=== PATIENT | female | born 1990 | race American Indian/Alaskan Native ===

== ENCOUNTER 2016-09-05 11:00 | Inpatient (IN) | payer OTHER ==
[2016-09-05] MEDS ORDERED: NACL 0.9% 1000 ML 1,000 ML IV ONE ×2 (11:39→15:36)
[2016-09-05] MEDS ORDERED: DILAUDID IV ONE (11:39)
--- NOTE | 2016-09-05 11:40 | Emergency Department Report ---
ED General Adult HPI - General Chief complaint: Chest Pain Stated complaint: CHEST PAIN Time Seen by Provider: 09/05/16 11:30 Source: patient, family Mode of arrival: Ambulatory Limitations: No Limitations - History of Present Illness Initial comments: This is a 25-year-old female. She is previously unknown to me. Has a past medical history of surgical correction for aortic coarctation when she was 1. The patient presents to the ER complaining of chest pain. The chest pain is central and radiates to the back. It increases with palpation, deep inspiration , movement, and decreases when she lays on her right hand side. There is no leg pain, there is no leg swelling, no fevers or chills, no intractable nausea or vomiting, patient able to tolerate liquid feeds. Does not have a fever that she is aware of. Reports that she is not , denies cocaine use, and she also reports that she does not take control tablets. -: Gradual Location: neck, chest (patient reports that the pain starts in the chest, and radiates to her back and neck), back Quality: aching Consistency: constant Improves with: rest Worsens with: movement Associated Symptoms: chest pain - Related Data Previous Rx's Medication Instructions Recorded Last Taken Type Azithromycin [Zithromax Z-LEONELA] 250 mg PO QDAY #4 tablet 09/05/16 Unknown Rx Ketorolac [Toradol] 10 mg PO Q6H PRN #20 tablet 09/05/16 Unknown Rx Metoclopramide [Reglan] 10 mg PO QID PRN #30 tablet 09/05/16 Unknown Rx Allergies Allergy/AdvReac Type Severity Reaction Status Date / Time No Known Allergies Allergy Unverified 09/05/16 11:12 ED Review of Systems ROS: Stated complaint: CHEST PAIN Other details as noted in HPI Constitutional: denies: malaise Eyes: denies: vision change ENT: denies: epistaxis Cardiovascular: chest pain Gastrointestinal: denies: abdominal pain Genitourinary: denies: dysuria Musculoskeletal: denies: back pain Skin: denies: lesions Psychiatric: anxiety ED Past Medical Hx - Past Medical History Previous Medical History?: Yes Additional medical history: coarctation of the Aorta - Surgical History Past Surgical History?: Yes Hx Open Heart Surgery: Yes - Social History Smoking Status: Never Smoker Substance Use Type: Alcohol - Medications Home Medications: Home Medications Medication Instructions Recorded Confirmed Last Taken Type Azithromycin [Zithromax Z-LEONELA] 250 mg PO QDAY #4 tablet 09/05/16 Unknown Rx Ketorolac [Toradol] 10 mg PO Q6H PRN #20 tablet 09/05/16 Unknown Rx Metoclopramide [Reglan] 10 mg PO QID PRN #30 tablet 09/05/16 Unknown Rx ED Physical Exam - General Limitations: No Limitations General appearance: alert, in distress, obese - Head Head exam: Present: atraumatic, normocephalic - Eye Eye exam: Present: normal appearance, EOMI. Absent: nystagmus - ENT ENT exam: Present: normal exam, normal orophraynx, mucous membranes moist, normal external ear exam - Neck Neck exam: Present: normal inspection, full ROM. Absent: tenderness, meningismus - Respiratory Respiratory exam: Present: normal lung sounds bilaterally, chest wall tenderness , other (reproducible anterior left-sided chest wall tenderness.). Absent: respiratory distress, wheezes, rales, rhonchi, stridor - Cardiovascular Cardiovascular Exam: Present: regular rate, normal rhythm. Absent: systolic murmur, diastolic murmur, rubs, gallop - GI/Abdominal GI/Abdominal exam: Present: soft, normal bowel sounds. Absent: distended, tenderness, guarding, rebound, rigid, pulsatile mass - Extremities Exam Extremities exam: Present: normal inspection, full ROM, normal capillary refill. Absent: tenderness, pedal edema, joint swelling, calf tenderness - Back Exam Back exam: Present: normal inspection, full ROM. Absent: tenderness, CVA tenderness (R), CVA tenderness (L), muscle spasm, paraspinal tenderness, vertebral tenderness - Neurological Exam Neurological exam: Present: alert, oriented X3, other (Extraocular movements intact. Tongue midline. No facial droop. Facial sensation intact to light touch in the V1, V2, V3 distribution bilaterally. 5 and 5 strength in 4 extremities.. Sensation is intact to light touch in 4 extremities.). Absent: motor sensory deficit - Psychiatric Psychiatric exam: Present: normal affect, normal mood - Skin Skin exam: Present: warm, dry, intact, normal color. Absent: rash ED Course Vital Signs 09/05/16 09/05/16 09/05/16 11:13 11:46 12:00 Temperature 98.9 F Pulse Rate 148 H 79 93 H Respiratory 22 11 L 30 H Rate Blood Pressure 136/71 112/65 112/65 Blood Pressure [Left] O2 Sat by Pulse 100 100 99 Oximetry 09/05/16 09/05/16 09/05/16 12:25 12:55 13:00 Temperature 99.3 F Pulse Rate 82 Respiratory 20 16 18 Rate Blood Pressure 100/65 Blood Pressure 108/56 [Left] O2 Sat by Pulse 97 Oximetry 09/05/16 09/05/16 09/05/16 13:39 14:00 14:09 Temperature Pulse Rate 81 Respiratory 16 24 16 Rate Blood Pressure 108/56 Blood Pressure [Left] O2 Sat by Pulse 100 Oximetry 09/05/16 09/05/16 09/05/16 15:00 15:12 16:00 Temperature 98.3 F Pulse Rate 138 H 120 H 112 H Respiratory 18 16 32 H Rate Blood Pressure 106/60 113/73 Blood Pressure 113/67 [Left] O2 Sat by Pulse 98 98 96 Oximetry 09/05/16 09/05/16 09/05/16 17:01 18:01 19:31 Temperature Pulse Rate 123 H 127 H Respiratory 20 27 H 20 Rate Blood Pressure 123/74 Blood Pressure 120/67 [Left] O2 Sat by Pulse 98 94 98 Oximetry - Reevaluation(s) Reevaluation #1: 09/05/16 13:06 Differential diagnosis: Aortic disease, costochondritis, pulmonary embolus, acute coronary syndrome, pneumonia, GERD, reflux Assessment and plan: 25-year-old female with a few days of reproducible pleuritic pain. Was very tachycardic when she came in, found to have a right bundle-branch block without prior for comparison. She had equal pulses in 4 extremities, compartments are soft. She was initially tachycardic, but improved with hydromorphone. Because of her chest pain, tachycardia, pleuritic component, I felt that the patient was too high risk by well's criteria to risk stratify by d-dimer, so an emergent CT angiogram is obtained to exclude aortic disease, and pulmonary embolus. A right lower lobe pneumonia is noted, however the patient has a low curb 65 score, she is not desaturating when she came weights, and she is tolerating liquid feeds. She will be given ceftriaxone and azithromycin, and discharged with azithromycin, and pain medication. Her abnormal EKG demonstrates a right bundle branch block, this is most likely chronic since her pediatric procedures, but we do not have a prior for comparison. I discussed the patient's care and presentation with the adult educator on-call, Dr. Jeffrey Langston, who agreed that the patient would not require admission for acute coronary syndrome risk stratification, and indicated that he would be able to see the patient next week for follow-up appointment. Patient is from the community, does not require healthcare associated pneumonia coverage, therefore ceftriaxone and azithromycin should be adequate. 09/05/16 13:09 Reevaluation #2: 09/05/16 13:13 patient's initial EKG is interpreted by the computer as being A. fib with RVR, however I believe P waves are evident, may be an arrhythmia which is in normal sinus, limited by motion artifact. A repeat EKG was free of artifact, clearly in sinus, and not rapid. Reevaluation #3: 09/05/16 15:33 change in plans. Patient is A. fib/flutter with RVR, variable rate from 85 beats per minutes to 151 beats per minutes. Given her radiographically confirmed pneumonia, I suspect that she is in RVR secondary to her acute infectious process. She will be given IV fluids. In addition, the patient is low risk by the Chads 2 vasc score, therefore, she will be given aspirin. Blood cultures, IV fluids will be drawn. Given her acutely infectious process, I do not believe that miya blockade is appropriate at this time. Hospital physician, Dr. Tong accepts patient to his service. Patient and family informed of change in plans. 09/05/16 15:35 ED Medical Decision Making - Lab Data Result diagrams: 09/07/16 04:21 09/07/16 04:21 Vital Signs 09/05/16 09/05/16 11:13 12:25 Temperature 98.9 F Pulse Rate 148 H Respiratory 22 20 Rate Blood Pressure 136/71 O2 Sat by Pulse 100 Oximetry Lab Results 09/05/16 09/05/16 09/05/16 Range/Units 11:30 11:35 11:35 WBC 11.9 H (4.5-11.0) K/mm3 RBC 4.82 (3.65-5.03) M/mm3 Hgb 14.4 H (10.1-14.3) gm/dl Hct 43.6 H (30.3-42.9) % MCV 90 (79-97) fl MCH 30 (28-32) pg MCHC 33 (30-34) % RDW 12.2 L (13.2-15.2) % Plt Count 260 (140-440) K/mm3 Lymph % (Auto) 14.2 (13.4-35.0) % Dukes % (Auto) 6.0 (0.0-7.3) % Eos % (Auto) 0.1 (0.0-4.3) % Baso % (Auto) 0.3 (0.0-1.8) % Lymph # 1.7 (1.2-5.4) K/mm3 Dukes # 0.7 (0.0-0.8) K/mm3 Eos # 0.0 (0.0-0.4) K/mm3 Baso # 0.0 (0.0-0.1) K/mm3 Seg Neutrophils % 79.4 H (40.0-70.0) % Seg Neutrophils # 9.5 H (1.8-7.7) K/mm3 PT (12.2-14.9) Sec. INR (0.87-1.13) Sodium 139 (137-145) mmol/L Potassium 4.2 (3.6-5.0) mmol/L Chloride 103.2 (98-107) mmol/L Carbon Dioxide 25 (22-30) mmol/L Anion Gap 15 mmol/L BUN 8 (7-17) mg/dL Creatinine 0.8 (0.7-1.2) mg/dL Estimated GFR > 60 ml/min BUN/Creatinine Ratio 10.00 % Glucose 117 H (65-100) mg/dL Calcium 9.1 (8.4-10.2) mg/dL Troponin T < 0.010 (0.00-0.029) ng/mL TSH (0.270-4.200) mlU/mL HCG, Quant (0-4) mIU/mL Urine Color Yellow (Yellow) Urine Turbidity Clear (Clear) Urine pH 5.0 (5.0-7.0) Ur Specific [place] 1.018 (1.003-1.030) Urine Protein 30 mg/dl (Negative) mg/dL Urine Glucose (UA) Neg (Negative) mg/dL Urine Ketones 20 (Negative) mg/dL Urine Blood Sm (Negative) Urine Nitrite Neg (Negative) Urine Bilirubin Neg (Negative) Urine Urobilinogen 4.0 (<2.0) mg/dL Ur Leukocyte Esterase Neg (Negative) Urine WBC (Auto) 1.0 (0.0-6.0) /HPF Urine RBC (Auto) 3.0 (0.0-6.0) /HPF U Epithel Cells (Auto) 1.0 (0-13.0) /HPF Urine Bacteria (Auto) 1+ (Negative) /HPF Urine Mucus Few /HPF Urine HCG, Qual Negative (Negative) 09/05/16 09/05/16 09/05/16 Range/Units 11:35 11:35 11:49 WBC (4.5-11.0) K/mm3 RBC (3.65-5.03) M/mm3 Hgb (10.1-14.3) gm/dl Hct (30.3-42.9) % MCV (79-97) fl MCH (28-32) pg MCHC (30-34) % RDW (13.2-15.2) % Plt Count (140-440) K/mm3 Lymph % (Auto) (13.4-35.0) % Dukes % (Auto) (0.0-7.3) % Eos % (Auto) (0.0-4.3) % Baso % (Auto) (0.0-1.8) % Lymph # (1.2-5.4) K/mm3 Dukes # (0.0-0.8) K/mm3 Eos # (0.0-0.4) K/mm3 Baso # (0.0-0.1) K/mm3 Seg Neutrophils % (40.0-70.0) % Seg Neutrophils # (1.8-7.7) K/mm3 PT 14.1 (12.2-14.9) Sec. INR 1.10 (0.87-1.13) Sodium (137-145) mmol/L Potassium (3.6-5.0) mmol/L Chloride (98-107) mmol/L Carbon Dioxide (22-30) mmol/L Anion Gap mmol/L BUN (7-17) mg/dL Creatinine (0.7-1.2) mg/dL Estimated GFR ml/min BUN/Creatinine Ratio % Glucose (65-100) mg/dL Calcium (8.4-10.2) mg/dL Troponin T (0.00-0.029) ng/mL TSH 0.387 (0.270-4.200) mlU/mL HCG, Quant < 2 (0-4) mIU/mL Urine Color (Yellow) Urine Turbidity (Clear) Urine pH (5.0-7.0) Ur Specific [place] (1.003-1.030) Urine Protein (Negative) mg/dL Urine Glucose (UA) (Negative) mg/dL Urine Ketones (Negative) mg/dL Urine Blood (Negative) Urine Nitrite (Negative) Urine Bilirubin (Negative) Urine Urobilinogen (<2.0) mg/dL Ur Leukocyte Esterase (Negative) Urine WBC (Auto) (0.0-6.0) /HPF Urine RBC (Auto) (0.0-6.0) /HPF U Epithel Cells (Auto) (0-13.0) /HPF Urine Bacteria (Auto) (Negative) /HPF Urine Mucus /HPF Urine HCG, Qual (Negative) - EKG Data When compared to previous EKG there are: previous EKG unavailable 09/05/16 13:12 EKG demonstrates sinus, 86 bpm, right bundle branch block, not morphologically consistent with STEMI, normal axis. Initial EKG demonstrates sinus tachycardia, sinus arrhythmia, QTc 478 ms, limited by motion artifact. 09/05/16 13:12 - Radiology Data Radiology results: report reviewed, image reviewed interpreted by me: x-ray of the chest demonstrates right lower lobe pneumonia. CT scan of the chest demonstrates right lower lobe pneumonia, no aortic disease , no pulmonary embolus. Critical care attestation.: If time is entered above; I have spent that time in minutes in the direct care of this critically ill patient, excluding procedure time. ED Disposition Clinical Impression: Chest wall pain, Lower lobe pneumonia, Atrial fibrillation with RVR Disposition: OP ADMITTED IP TO THIS HOSP Is pt being admited?: Yes Does the pt Need Aspirin: Yes Condition: Stable
[2016-09-05 11:51] LABS: Basophils % (Auto) 0.3 % (0.0-1.8); Eosinophils % (Auto) 0.1 % (0.0-4.3); Hematocrit 43.6 % (30.3-42.9); Hemoglobin 14.4 gm/dl (10.1-14.3); Mean Corpuscular HGB Conc 33 % (30-34); Mean Corpuscular Hemoglobin 30 pg (28-32); Mean Corpuscular Volume 90 fl (79-97); Platelet Count 260 K/mm3 (140-440); Red Blood Count 4.82 M/mm3 (3.65-5.03); Red Cell Distribution Width 12.2 % (13.2-15.2); White Blood Count 11.9 K/mm3 (4.5-11.0)
[2016-09-05 12:00] LABS: Bacteria,Urine 1+ /HPF (Negative); Bilirubin,Urine NEG (Negative); Blood,Urine SM (Negative); Ketones,Urine 20 mg/dL (Negative); Leukocyte Esterase,Urine NEG (Negative); Mucus,Urine FEW /HPF; Nitrite,Urine NEG (Negative)
[2016-09-05 12:08] LABS: Anion Gap 15 mmol/L; Blood Urea Nitrogen 8 mg/dL (7-17); Calcium 9.1 mg/dL (8.4-10.2); Carbon Dioxide 25 mmol/L (22-30); Chloride 103.2 mmol/L (98-107); Glucose 117 mg/dL (65-100); Potassium 4.2 mmol/L (3.6-5.0); Sodium 139 mmol/L (137-145)
[2016-09-05 12:24] LABS: INR 1.1 (0.87-1.13)
[2016-09-05] MEDS ORDERED: NACL ONE (12:24)
--- NOTE | 2016-09-05 13:00 | Cat Scan Report ---
CT scan of chest with IV contrast: PA protocol. History: Pleuritic chest pain. Findings: No evidence of aortic aneurysm or pulmonary embolism. No mediastinal mass or adenopathy. No pleural or pericardial effusion. Ill-defined airspace opacities right lower lobe suggestive of pneumonitis. No mass. Impression: No evidence of pulmonary embolism. Right lower lobe pneumonia.
[2016-09-05] MEDS ORDERED: TORADOL IV ONE (13:02)
[2016-09-05] MEDS ORDERED: ROCEPHIN/NS 1 GM/50 ML 1 GM/50 ML BAG IV ONE (13:02)
[2016-09-05] MEDS ORDERED: ZITHROMAX PO ONE (13:11)
--- NOTE | 2016-09-05 13:34 | XRay Report ---
Single view chest: History: Chest pain. Findings: Borderline cardiomegaly. Trachea is midline. Faint ill-defined linear density right lower lobe suggestive of discoid atelectasis or pneumonitis. Normal CP angles. Impression: Pneumonia/discoid atelectasis right lower lobe.
[2016-09-05] MEDS ORDERED: NACL 0.9% 1000 ML 2,000 ML IV ONE (15:32)
--- NOTE | 2016-09-05 15:57 | History and Physical Report ---
History of Present Illness Chief complaint: My chest hurts History of present illness: 25 YO Female with Paroxysmal Atrial Fib, Obesity, Aortic Coartcation S/P repair 25 years ago presents to ED for evaluation. Pt states that she has been experiencing chest pain. Pain is 6/10, substernal, radiates to her back, increases with palpation, deep inspiration, movement, and decreases when she lays on her right side. Pt denies fever, chills, Palpitations, NVD, syncope, trauma, hemoptysis, BRBPR, prolonged travel/immobility, individual/family history of DVT/PE, productive cough, or recent ill contacts. Past History Past Medical History: other (obesity, aortic coarctation) Past Surgical History: Other (heart surgery) Social history: single. denies: smoking, alcohol abuse Family history: diabetes, hypertension Medications and Allergies Allergies Allergy/AdvReac Type Severity Reaction Status Date / Time No Known Allergies Allergy Unverified 09/05/16 11:12 Home Medications Medication Instructions Recorded Confirmed Last Taken Type Azithromycin [Zithromax Z-LEONELA] 250 mg PO QDAY #4 tablet 09/05/16 Unknown Rx Ketorolac [Toradol] 10 mg PO Q6H PRN #20 tablet 09/05/16 Unknown Rx Metoclopramide [Reglan] 10 mg PO QID PRN #30 tablet 09/05/16 Unknown Rx Active Meds: Active Medications Sodium Chloride (Nacl 0.9% 1000 Ml) 1,000 mls @ 999 mls/hr IV BOLUS ONE Stop: 09/05/16 16:36 Review of Systems All systems: negative Cardiovascular: chest pain Exam - Constitutional Vitals: Temp Pulse Resp BP Pulse Ox 98.3 F 120 H 16 113/67 98 09/05/16 15:12 09/05/16 15:12 09/05/16 15:12 09/05/16 15:12 09/05/16 15:12 General appearance: Present: no acute distress, well-nourished, obese - EENT Eyes: Present: PERRL ENT: hearing intact, clear oral mucosa - Neck Neck: Present: supple, normal ROM - Respiratory Respiratory effort: normal Respiratory: bilateral: CTA - Cardiovascular Heart Sounds: Present: S1 & S2. Absent: rub, click - Extremities Extremities: pulses symmetrical, No edema Peripheral Pulses: within normal limits - Abdominal General gastrointestinal: Present: soft, non-tender, non-distended, normal bowel sounds Female genitourinary: Present: normal - Integumentary Integumentary: Present: clear, warm, dry - Musculoskeletal Musculoskeletal: gait normal, strength equal bilaterally - Psychiatric Psychiatric: appropriate mood/affect, intact judgment & insight - Neurologic Neurologic: CNII-XII intact, moves all extremities Results - Labs CBC & Chem 7: 09/05/16 11:35 09/05/16 11:35 Labs: Abnormal lab results 09/05/16 09/05/16 Range/Units 11:35 11:35 WBC 11.9 H (4.5-11.0) K/mm3 Hgb 14.4 H (10.1-14.3) gm/dl Hct 43.6 H (30.3-42.9) % RDW 12.2 L (13.2-15.2) % Seg Neutrophils % 79.4 H (40.0-70.0) % Seg Neutrophils # 9.5 H (1.8-7.7) K/mm3 Glucose 117 H (65-100) mg/dL Assessment and Plan - Patient Problems (1) Paroxysmal atrial fibrillation with rapid ventricular response Current Visit: Yes Status: Acute Plan to address problem: Cardiology consulted, rate currently controlled: telemetry, supportive care. Aspirin, Anticoagulation as per cardiology CHADS 2 VAsc Score: 1 (2) Obesity (BMI 35.0-39.9 without comorbidity) Current Visit: Yes Status: Acute Plan to address problem: Pt counseled regarding balanced diet, and increased physical activity (3) Coarctation of aorta Current Visit: Yes Status: Chronic Plan to address problem: CTA chest, supportive care, ddimer, (4) Lower lobe pneumonia Current Visit: Yes Status: Acute Qualifiers: Pneumonia type: P Aspiration pneumonia type: A Laterality: L Plan to address problem: Pneumonia protocol, IV abx, supplemental oxygen, nebs, supportive care. (5) DVT prophylaxis Current Visit: Yes Status: Acute
[2016-09-05] MEDS ORDERED: ZOFRAN IV PRN (16:45)
[2016-09-05] MEDS ORDERED: MILK OF MAGNESIA PO PRN (16:45)
[2016-09-05] MEDS ORDERED: DULCOLAX PR PRN (16:45)
[2016-09-05] MEDS: TYLENOL PO PRN (22:08)
[2016-09-06] MEDS: TYLENOL PO PRN ×2 (04:32→21:46)
[2016-09-06] MEDS ORDERED: TORADOL IV ONE (10:00)
--- NOTE | 2016-09-06 10:25 | Progress Note ---
Assessment and Plan Assessment and plan: 1. Chest pain. Cardiology consultation pending. Consider stress thallium per cardiology recommendations. 2. Paroxysmal atrial fibrillation with RVR. Continue telemetry monitoring and aspirin. CHADS 2 score is 1. Etiology likely secondary to infectious process/ RLL pna. Check TSH and echocardiogram. 3. Obesity. Patient counseled regarding diet and increase physical activity. 4. Coarctation of aorta. CT of the chest negative. 5. Right lower lobe pneumonia. Continue pneumonia protocol, IV antibiotics, supplemental oxygen and supportive care. Follow-up blood cultures. 6. DVT prophylaxis. Start Lovenox. History Interval history: 25 YO Female with Paroxysmal Atrial Fib, Obesity, Aortic Coartcation S/P repair 25 years ago presents to ED for evaluation of chest pain. Patient was diagnosed with paroxysmal atrial fibrillation with RVR and right lower lobe pneumonia. No new issues overnight. Hospitalist Physical - Constitutional Vitals: Temp Pulse Resp BP Pulse Ox 97.5 F L 67 18 114/62 98 09/06/16 04:51 09/06/16 04:51 09/06/16 04:51 09/06/16 04:51 09/06/16 04:51 General appearance: Present: no acute distress, well-nourished, obese - EENT Eyes: Present: PERRL, EOM intact ENT: hearing intact, clear oral mucosa, dentition normal - Neck Neck: Present: supple, normal ROM - Respiratory Respiratory effort: normal Respiratory: bilateral: rhonchi (R>L) - Cardiovascular Rhythm: regular Heart Sounds: Present: S1 & S2. Absent: gallop, rub - Extremities Extremities: no ischemia, No edema, Full ROM - Abdominal General gastrointestinal: soft, non-tender, non-distended, normal bowel sounds - Integumentary Integumentary: Present: clear, warm, dry - Neurologic Neurologic: CNII-XII intact, moves all extremities Results - Labs CBC & Chem 7: 09/05/16 11:35 09/05/16 11:35 Labs: Laboratory Last Values WBC 11.9 K/mm3 (4.5-11.0) H 09/05/16 11:35 RBC 4.82 M/mm3 (3.65-5.03) 09/05/16 11:35 Hgb 14.4 gm/dl (10.1-14.3) H 09/05/16 11:35 Hct 43.6 % (30.3-42.9) H 09/05/16 11:35 MCV 90 fl (79-97) 09/05/16 11:35 MCH 30 pg (28-32) 09/05/16 11:35 MCHC 33 % (30-34) 09/05/16 11:35 RDW 12.2 % (13.2-15.2) L 09/05/16 11:35 Plt Count 260 K/mm3 (140-440) 09/05/16 11:35 Lymph % (Auto) 14.2 % (13.4-35.0) 09/05/16 11:35 [place] % (Auto) 6.0 % (0.0-7.3) 09/05/16 11:35 Eos % (Auto) 0.1 % (0.0-4.3) 09/05/16 11:35 Baso % (Auto) 0.3 % (0.0-1.8) 09/05/16 11:35 Lymph # 1.7 K/mm3 (1.2-5.4) 09/05/16 11:35 Ward # 0.7 K/mm3 (0.0-0.8) 09/05/16 11:35 Eos # 0.0 K/mm3 (0.0-0.4) 09/05/16 11:35 Baso # 0.0 K/mm3 (0.0-0.1) 09/05/16 11:35 Seg Neutrophils % 79.4 % (40.0-70.0) H 09/05/16 11:35 Seg Neutrophils # 9.5 K/mm3 (1.8-7.7) H 09/05/16 11:35 PT 14.1 Sec. (12.2-14.9) 09/05/16 11:49 INR 1.10 (0.87-1.13) 09/05/16 11:49 Sodium 139 mmol/L (137-145) 09/05/16 11:35 Potassium 4.2 mmol/L (3.6-5.0) 09/05/16 11:35 Chloride 103.2 mmol/L (98-107) 09/05/16 11:35 Carbon Dioxide 25 mmol/L (22-30) 09/05/16 11:35 Anion Gap 15 mmol/L 09/05/16 11:35 BUN 8 mg/dL (7-17) 09/05/16 11:35 Creatinine 0.8 mg/dL (0.7-1.2) 09/05/16 11:35 Estimated GFR > 60 ml/min 09/05/16 11:35 BUN/Creatinine Ratio 10.00 % 09/05/16 11:35 Glucose 117 mg/dL (65-100) H 09/05/16 11:35 Calcium 9.1 mg/dL (8.4-10.2) 09/05/16 11:35 Magnesium 2.0 mg/dL (1.7-2.3) 09/05/16 17:04 Troponin T < 0.010 ng/mL (0.00-0.029) 09/05/16 17:04 TSH 0.387 mlU/mL (0.270-4.200) 09/05/16 11:35 HCG, Quant < 2 mIU/mL (0-4) 09/05/16 11:35 Urine Color Yellow (Yellow) 09/05/16 11:30 Urine Turbidity Clear (Clear) 09/05/16 11:30 Urine pH 5.0 (5.0-7.0) 09/05/16 11:30 Ur Specific [place] 1.018 (1.003-1.030) 09/05/16 11:30 Urine Protein 30 mg/dl mg/dL (Negative) 09/05/16 11:30 Urine Glucose (UA) Neg mg/dL (Negative) 09/05/16 11:30 Urine Ketones 20 mg/dL (Negative) 09/05/16 11:30 Urine Blood Sm (Negative) 09/05/16 11:30 Urine Nitrite Neg (Negative) 09/05/16 11:30 Urine Bilirubin Neg (Negative) 09/05/16 11:30 Urine Urobilinogen 4.0 mg/dL (<2.0) 09/05/16 11:30 Ur Leukocyte Esterase Neg (Negative) 09/05/16 11:30 Urine WBC (Auto) 1.0 /HPF (0.0-6.0) 09/05/16 11:30 Urine RBC (Auto) 3.0 /HPF (0.0-6.0) 09/05/16 11:30 U Epithel Cells (Auto) 1.0 /HPF (0-13.0) 09/05/16 11:30 Urine Bacteria (Auto) 1+ /HPF (Negative) 09/05/16 11:30 Urine Mucus Few /HPF 09/05/16 11:30 Urine HCG, Qual Negative (Negative) 09/05/16 11:30
[2016-09-06] MEDS: MORPHINE IV PRN ×2 (12:17→19:51)
--- NOTE | 2016-09-06 15:57 | Consultation ---
History of Present Illness Consult date: 09/06/16 Past History Past Medical History: other (obesity, aortic coarctation) Past Surgical History: Other (heart surgery) Social history: single. denies: smoking, alcohol abuse Family history: diabetes, hypertension Medications and Allergies Allergies Allergy/AdvReac Type Severity Reaction Status Date / Time No Known Allergies Allergy Unverified 09/05/16 11:12 Home Medications Medication Instructions Recorded Confirmed Last Taken Type Azithromycin [Zithromax Z-LEONELA] 250 mg PO QDAY #4 tablet 09/05/16 Unknown Rx Ketorolac [Toradol] 10 mg PO Q6H PRN #20 tablet 09/05/16 Unknown Rx Metoclopramide [Reglan] 10 mg PO QID PRN #30 tablet 09/05/16 Unknown Rx Active Meds: Active Medications Acetaminophen (Tylenol) 650 mg PO Q4H PRN PRN Reason: Pain MILD(1-3)/Fever >100.5/BALDWIN Last Admin: 09/06/16 04:32 Dose: 650 mg Bisacodyl (Dulcolax) 10 mg DC QDAY PRN PRN Reason: Constipation unrelieved by MOM Enoxaparin Sodium (Lovenox) 40 mg SUB-Q QDAY@1000 TARI Magnesium Hydroxide (Milk Of Magnesia) 30 ml PO Q4H PRN PRN Reason: Constipation Morphine Sulfate (Morphine) 2 mg IV Q6H PRN PRN Reason: Pain, Moderate (4-6) Last Admin: 09/06/16 12:17 Dose: 2 mg Ondansetron HCl (Zofran) 4 mg IV Q8H PRN PRN Reason: N/V unrelieved by Reglan Physical Examination Vital Signs Temp Pulse Resp BP Pulse Ox 98.9 F 148 H 22 136/71 100 09/05/16 11:13 09/05/16 11:13 09/05/16 11:13 09/05/16 11:13 09/05/16 11:13 Results 09/05/16 11:35 09/05/16 11:35 Assessment and Plan Detailed Cardiology consult dictated. Will F/U Echo.
--- NOTE | 2016-09-07 01:53 | Consultation ---
REFERRING PHYSICIAN: Chip Posada MD HISTORY OF PRESENT ILLNESS: A 25-year-old severely obese (BMI of 37.5) pleasant -[place] woman with a history of surgery for coarctation of the aorta (when she was 2 weeks old and also when she was 6 months old), who was admitted with right inframammary and retrosternal chest pains and palpitations started 4 days ago. The patient took Prevacid, Pepcid, aspirin, and ibuprofen without much relief, then she came to the Emergency Room. She was found to be in atrial fibrillation, with a fast ventricular response with heart rate varying between 100-170 beats per minute. The chest pain subsided after she received intravenous morphine sulfate. A CAT scan of the chest was done which did not reveal any evidence of pulmonary embolism, however, it revealed right lower lobe pneumonia. Hence, she was admitted. Her serum potassium and magnesium were within normal limits. Serum TSH was normal. Serial troponins were negative and myocardial infarction was ruled out. At this time, the patient's monitor reveals normal sinus rhythm with frequent APCs. Her chest x-ray revealed right lower lobe pneumonia versus discoid atelectasis. PAST MEDICAL HISTORY: History of surgery for coarctation of the aorta twice when she was an infant as described above. No history of hypertension or diabetes mellitus. No history of hyperlipidemia. She was not on any regular medications at home. No history of thyroid problems in the past. SOCIAL HISTORY: Not a smoker, not an alcoholic. No history of drug abuse. FAMILY HISTORY: As per her, father had myocardial infarction. Further details are not known at this time. REVIEW OF SYSTEMS: CARDIOVASCULAR: As described in the history. METABOLISM AND ENDOCRINOLOGY: As described in the history. PULMONARY: As described in the history. Review of rest of the 10 systems is negative. MEDICATIONS: Lovenox 40 mg subcutaneous daily, intravenous morphine sulfate 2 mg IV q. 6h. p.r.n. for pain, Tylenol 650 mg p.o. q.4h. p.r.n. for pain. PHYSICAL EXAMINATION: GENERAL: A 25-year-old severely obese, pleasant -[place] woman resting in bed, not in distress. VITAL SIGNS: Pulse ____ per minute, irregularity present secondary to APCs, blood pressure 127/64 mmHg. She is afebrile. NEUROLOGIC: She is alert and oriented x 3. HEENT: Negative. NECK: Supple, no JVD, no bruit, no thyromegaly. HEART: PMI could not be felt satisfactorily, no palpable thrills. Auscultation of heart reveals S1, S2 heard. Heart sounds are rather muffled. No murmur or rub is appreciated. Peripheral pulses felt. No edema. LUNGS: Bilateral air entry good and equal. No bronchial breathing, no wheezing. ABDOMEN: Soft, benign. SKIN: Negative. BONE AND JOINTS: Negative. LABORATORY DATA: As described in the history, potassium, BUN and creatinine within normal limits. Troponins as described in the history. Hemoglobin, hematocrit, platelet count within normal limits. WBC 11.9. Chest x-ray 1 view right lower lobe pneumonia versus discoid atelectasis. A 12-lead EKG: Atrial fibrillation with rapid ventricular response of 116 per minute, right ventricular conduction delay, old inferior wall myocardial infarction, nonspecific ST-T changes, possible anterior ischemia. IMPRESSION: 1. Atrial fibrillation with rapid ventricular response. The patient is in normal sinus rhythm with APCs at this time (atrial fibrillation could be of new onset or could be paroxysmal). 2. Myocardial infarction, ruled out. 3. History of surgery for coarctation of aorta when she was an infant. 4. Severe obesity. 5. Right lower lobe pneumonia. 6. Abnormal EKG. RECOMMENDATIONS: 1. The patient's CHADS-VASc score is 1. She is at low risk for thromboembolic phenomena. At this time, she is in sinus rhythm. I do not believe that she needs long-term anticoagulation. 2. Treatment of pneumonia as . 3. We will follow up echocardiogram. 4. Further recommendations will follow. Thank you again. Yours Sincerely, JOB# [id number] [facility]
[2016-09-07 05:09] LABS: Basophils % (Auto) 0.4 % (0.0-1.8); Eosinophils % (Auto) 0.9 % (0.0-4.3); Hematocrit 37.7 % (30.3-42.9); Hemoglobin 12.7 gm/dl (10.1-14.3); Mean Corpuscular HGB Conc 34 % (30-34); Mean Corpuscular Hemoglobin 31 pg (28-32); Mean Corpuscular Volume 92 fl (79-97); Platelet Count 239 K/mm3 (140-440); Red Blood Count 4.12 M/mm3 (3.65-5.03); Red Cell Distribution Width 12.4 % (13.2-15.2); White Blood Count 8.5 K/mm3 (4.5-11.0)
[2016-09-07 05:29] LABS: Anion Gap 16 mmol/L; BUN/Creatinine Ratio 8.75; Blood Urea Nitrogen 7 mg/dL (7-17); Calcium 8.2 mg/dL (8.4-10.2); Carbon Dioxide 24 mmol/L (22-30); Chloride 106.2 mmol/L (98-107); Glucose 93 mg/dL (65-100); Potassium 4.7 mmol/L (3.6-5.0); Sodium 141 mmol/L (137-145)
--- NOTE | 2016-09-07 08:06 | Consultation ---
ADDENDUM The patient also gives history of caffeine use. She takes about 5-6 cans of caffeinated beverages per week. I advised her to come down on caffeine consumption as it could be a stimulating factor for atrial fibrillation. We will also ask for a fasting lipid panel in the a.m. to assess her repeat status. JOB# [id number] [facility]
[2016-09-07] MEDS: TYLENOL PO PRN ×2 (09:12→14:26)
[2016-09-07] MEDS: LOVENOX SUB-Q SCH (09:13)
[2016-09-07] MEDS ORDERED: LOVENOX SUB-Q SCH (10:00)
--- NOTE | 2016-09-07 10:10 | Progress Note ---
Assessment and Plan Assessment and plan: 1. Chest pain. Cardiology consultation pending. Consider stress thallium per cardiology recommendations. 2. Paroxysmal atrial fibrillation with RVR. Continue telemetry monitoring and aspirin. CHADS 2 score is 1. Etiology likely secondary to infectious process/ RLL pna. Check TSH and echocardiogram. Patient currently normal sinus rhythm. 3. Obesity. Patient counseled regarding diet and increase physical activity. 4. Coarctation of aorta. CT of the chest negative. 5. Right lower lobe pneumonia. Continue pneumonia protocol, IV antibiotics, supplemental oxygen and supportive care. Follow-up blood cultures. 6. Pleurisy. Continue Toradol and pain control. 7. DVT prophylaxis. Start Lovenox. History Interval history: 25 YO Female with Paroxysmal Atrial Fib, Obesity, Aortic Coartcation S/P repair 25 years ago presents to ED for evaluation of chest pain. Patient was diagnosed with paroxysmal atrial fibrillation with RVR and right lower lobe pneumonia. Patient complains of right-sided pleurisy. No new issues overnight. Hospitalist Physical - Constitutional Vitals: Temp Pulse Resp BP Pulse Ox 97.8 F 55 L 20 126/62 96 09/07/16 09:13 09/07/16 09:13 09/07/16 09:13 09/07/16 09:13 09/07/16 09:13 General appearance: Present: no acute distress, well-nourished, obese - EENT Eyes: Present: PERRL, EOM intact ENT: hearing intact, clear oral mucosa, dentition normal - Neck Neck: Present: supple, normal ROM - Respiratory Respiratory effort: normal Respiratory: bilateral: CTA - Cardiovascular Rhythm: regular Heart Sounds: Present: S1 & S2. Absent: gallop, rub - Extremities Extremities: no ischemia, No edema, Full ROM - Abdominal General gastrointestinal: soft, non-tender, non-distended, normal bowel sounds - Integumentary Integumentary: Present: clear, warm, dry - Neurologic Neurologic: CNII-XII intact, moves all extremities Results - Labs CBC & Chem 7: 09/07/16 04:21 09/07/16 04:21 Labs: Laboratory Last Values WBC 8.5 K/mm3 (4.5-11.0) 09/07/16 04:21 RBC 4.12 M/mm3 (3.65-5.03) 09/07/16 04:21 Hgb 12.7 gm/dl (10.1-14.3) 09/07/16 04:21 Hct 37.7 % (30.3-42.9) 09/07/16 04:21 MCV 92 fl (79-97) 09/07/16 04:21 MCH 31 pg (28-32) 09/07/16 04:21 MCHC 34 % (30-34) 09/07/16 04:21 RDW 12.4 % (13.2-15.2) L 09/07/16 04:21 Plt Count 239 K/mm3 (140-440) 09/07/16 04:21 Lymph % (Auto) 30.8 % (13.4-35.0) 09/07/16 04:21 [place] % (Auto) 7.8 % (0.0-7.3) H 09/07/16 04:21 Eos % (Auto) 0.9 % (0.0-4.3) 09/07/16 04:21 Baso % (Auto) 0.4 % (0.0-1.8) 09/07/16 04:21 Lymph # 2.6 K/mm3 (1.2-5.4) 09/07/16 04:21 [place] # 0.7 K/mm3 (0.0-0.8) 09/07/16 04:21 Eos # 0.1 K/mm3 (0.0-0.4) 09/07/16 04:21 Baso # 0.0 K/mm3 (0.0-0.1) 09/07/16 04:21 Seg Neutrophils % 60.1 % (40.0-70.0) 09/07/16 04:21 Seg Neutrophils # 5.1 K/mm3 (1.8-7.7) 09/07/16 04:21 PT 14.1 Sec. (12.2-14.9) 09/05/16 11:49 INR 1.10 (0.87-1.13) 09/05/16 11:49 Sodium 141 mmol/L (137-145) 09/07/16 04:21 Potassium 4.7 mmol/L (3.6-5.0) 09/07/16 04:21 Chloride 106.2 mmol/L (98-107) 09/07/16 04:21 Carbon Dioxide 24 mmol/L (22-30) 09/07/16 04:21 Anion Gap 16 mmol/L 09/07/16 04:21 BUN 7 mg/dL (7-17) 09/07/16 04:21 Creatinine 0.8 mg/dL (0.7-1.2) 09/07/16 04:21 Estimated GFR > 60 ml/min 09/07/16 04:21 BUN/Creatinine Ratio 8.75 % 09/07/16 04:21 Glucose 93 mg/dL (65-100) 09/07/16 04:21 Calcium 8.2 mg/dL (8.4-10.2) L 09/07/16 04:21 Magnesium 2.0 mg/dL (1.7-2.3) 09/05/16 17:04 Troponin T < 0.010 ng/mL (0.00-0.029) 09/05/16 17:04 Triglycerides 60 mg/dL (2-149) 09/07/16 04:21 Cholesterol 130 mg/dL (50-199) 09/07/16 04:21 LDL Cholesterol Direct 70 mg/dL (50-130) 09/07/16 04:21 HDL Cholesterol 48 mg/dL (40-59) 09/07/16 04:21 Cholesterol/HDL Ratio 2.70 % 09/07/16 04:21 TSH 0.387 mlU/mL (0.270-4.200) 09/05/16 11:35 HCG, Quant < 2 mIU/mL (0-4) 09/05/16 11:35 Urine Color Yellow (Yellow) 09/05/16 11:30 Urine Turbidity Clear (Clear) 09/05/16 11:30 Urine pH 5.0 (5.0-7.0) 09/05/16 11:30 Ur Specific [place] 1.018 (1.003-1.030) 09/05/16 11:30 Urine Protein 30 mg/dl mg/dL (Negative) 09/05/16 11:30 Urine Glucose (UA) Neg mg/dL (Negative) 09/05/16 11:30 Urine Ketones 20 mg/dL (Negative) 09/05/16 11:30 Urine Blood Sm (Negative) 09/05/16 11:30 Urine Nitrite Neg (Negative) 09/05/16 11:30 Urine Bilirubin Neg (Negative) 09/05/16 11:30 Urine Urobilinogen 4.0 mg/dL (<2.0) 09/05/16 11:30 Ur Leukocyte Esterase Neg (Negative) 09/05/16 11:30 Urine WBC (Auto) 1.0 /HPF (0.0-6.0) 09/05/16 11:30 Urine RBC (Auto) 3.0 /HPF (0.0-6.0) 09/05/16 11:30 U Epithel Cells (Auto) 1.0 /HPF (0-13.0) 09/05/16 11:30 Urine Bacteria (Auto) 1+ /HPF (Negative) 09/05/16 11:30 Urine Mucus Few /HPF 09/05/16 11:30 Urine HCG, Qual Negative (Negative) 09/05/16 11:30
--- NOTE | 2016-09-07 11:22 | Progress Note ---
Assessment and Plan Assessment: Afib with RVR - new onset v. paroxysmal; TSH WNL; likely precipitated by PNA. PNA / pleurisy Remote h/o surgery for coarctation of aorta Obesity Plan: Currently stable cardiac status. Cont current management. Await echo. Cont tele. Pt with CHADS score of 1. Pt is at low risk for thromboembolic event and remains in SR. Thus, long-term anticoagulation in regards to atrial fibrillation is not recommended at this time. Assessment and plan reviewed with pt at bedside. The patient has been seen in conjunction with Dr. Cleary who agrees with the assessment and plan of care. Subjective Date of service: 09/07/16 Principal diagnosis: paroxysmal atrial fibrillation; PNA Interval history: Pt resting comfortably in bed, c/o right sided chest pain with deep inspiration. Remains in SR on tele, RBBB, BPs WNL. Objective Last Vital Signs Temp 97.8 F 09/07/16 09:13 Pulse 55 L 09/07/16 09:13 Resp 20 09/07/16 09:13 BP 126/62 09/07/16 09:13 Pulse Ox 96 09/07/16 09:13 - Physical Examination General: Appears Well, No Apparent Distress HEENT: Positive: PERRL, EOMI Neck: Positive: neck supple, trachea midline Cardiac: Positive: Reg Rate and Rhythm, S1/S2 Lungs: Positive: clear to auscultation, No Wheeze, Rales, Rhonchi Neuro: Positive: Grossly Intact, Cranial Nerve 2-12 Intact Abdomen: Positive: Unremarkable, Soft, Active Bowel Sounds. Negative: Tender Skin: Positive: Clear. Negative: Rash, Wound Musculoskeletal: No Fluid Collection, No Pain, Normal Range of Motion Extremities: Present: upper extr. pulses, lower extr. pulses - Labs and Meds Lipids 09/07/16 Range/Units 04:21 Triglycerides 60 (2-149) mg/dL Cholesterol 130 (50-199) mg/dL HDL Cholesterol 48 (40-59) mg/dL Cholesterol/HDL Ratio 2.70 % CBC 09/07/16 Range/Units 04:21 WBC 8.5 (4.5-11.0) K/mm3 RBC 4.12 (3.65-5.03) M/mm3 Hgb 12.7 (10.1-14.3) gm/dl Hct 37.7 (30.3-42.9) % Plt Count 239 (140-440) K/mm3 Lymph # 2.6 (1.2-5.4) K/mm3 [place] # 0.7 (0.0-0.8) K/mm3 Eos # 0.1 (0.0-0.4) K/mm3 Baso # 0.0 (0.0-0.1) K/mm3 Comprehensive Metabolic Panel 09/07/16 Range/Units 04:21 Sodium 141 (137-145) mmol/L Potassium 4.7 (3.6-5.0) mmol/L Chloride 106.2 (98-107) mmol/L Carbon Dioxide 24 (22-30) mmol/L BUN 7 (7-17) mg/dL Creatinine 0.8 (0.7-1.2) mg/dL Glucose 93 (65-100) mg/dL Calcium 8.2 L (8.4-10.2) mg/dL - Imaging and Cardiology EKG: report reviewed - Telemetry EKG Rhythm: Sinus Rhythm
[2016-09-07] MEDS: MORPHINE IV PRN (19:59)
[2016-09-07] MEDS: ULTRAM PO PRN (22:04)
[2016-09-08 05:54] LABS: Basophils % (Auto) 0.2 % (0.0-1.8); Eosinophils % (Auto) 0.4 % (0.0-4.3); Hematocrit 37.7 % (30.3-42.9); Hemoglobin 12.8 gm/dl (10.1-14.3); Mean Corpuscular HGB Conc 34 % (30-34); Mean Corpuscular Hemoglobin 31 pg (28-32); Mean Corpuscular Volume 90 fl (79-97); Platelet Count 263 K/mm3 (140-440); Red Blood Count 4.17 M/mm3 (3.65-5.03); Red Cell Distribution Width 12.1 % (13.2-15.2); White Blood Count 10.2 K/mm3 (4.5-11.0)
[2016-09-08 06:13] LABS: Anion Gap 17 mmol/L; Blood Urea Nitrogen 7 mg/dL (7-17); Calcium 8.5 mg/dL (8.4-10.2); Carbon Dioxide 22 mmol/L (22-30); Chloride 102.8 mmol/L (98-107); Glucose 99 mg/dL (65-100); Potassium 4.2 mmol/L (3.6-5.0); Sodium 138 mmol/L (137-145)
--- NOTE | 2016-09-08 08:42 | Admit Criteria Form ---
Admission Criteria Documentation: ATRIAL FIBRILLATION Clinical Indications for Admission to Inpatient Care (Place 'X' for any and all applicable criteria): Admission indicated for ANY ONE of the following(1)(2)(3)(4)(5) : [ ]I. Myocardial ischemia [ ]II. Dyspnea or hypoxemia [ ]III. Hemodynamic instability [ ]IV. Heart failure (e.g., pulmonary edema) (7) [ ]V. New-onset (less than 48 hours) atrial fibrillation with high risk for causing complications secondary to comorbidities (eg, symptomatic heart failure ) [ ]. Altered mental status [ ]VII. Syncope [ ]VIII. Patient has implantable cardioverter defibrillator that has fired more than once within past 24hr or needs immediate adjustment of settings that cannot be done other than in inpatient setting. (8) [ ]IX. Suspected accessory pathway (e.g., Duodn-Zeumfpesp-Ytzko syndrome) on ECG [ ]X. Recent systemic thromboembolism (eg, stroke) [ ]XI. Medication toxicity (e.g., digitalis) causing arrhythmia(9) [X]XII. Underlying medical condition that necessitates inpatient care (e.g., thyrotoxicosis, pneumonia) (10) [ ]XIII. Continuous ECG monitoring is required for condition causing arrhythmia (e.g., severe hyperkalemia, hypokalemia, acid-base disturbance).(11)(12)(13) [ ]XIV. Initiation of antiarrhythmic drug therapy is needed in patient at high risk of adverse effects as indicated by ANY ONE of the following: [ ]a) Significant structural heart disease (e.g., reduced ejection fraction, congenital heart disease, valvular heart disease) [ ]b) Prolonged QT interval [ ]c) Underlying sinus node or atrioventricular conduction disturbances [ ]d) Need for treatment with antiarrhythmic drugs that have significant proarrhythmic potential (e.g., dofetilide, sotalol, procainamide) [ ]e) Patient whose sinus rhythm has never been observed on ECG [ ]XV. Intolerable symptoms despite optimal outpatient treatment [ ]XVI. Elective or urgent cardioversion that cannot be performed on outpatient basis or during observation care. [A] (Use also Atrial Fibrillation: Observation Care ) as appropriate.(14) [ ]XVII.Contraindications and/or Inappropriate clinical situations for Observational Care in patients with Atrial Fibrillation, when ANY ONE of the following is required: [ ]a) Patient with High risk of cardiac embolism (e.g, patients with previous cardiac embolism, LVEF < 40%, age >75 and patients with prosthetic valve) 18 [ ]b) Patient with Moderate risk including DM patient, CAD and patient aged 65-75 18 [ ]c) Patient with any change in cardiac biomarker especially troponin should be managed as high risk in an inpatient setting 19 [ ]d) Physician judgement irrespective of ECG and other diagnostic findings 20 [ ]XVIII.General contraindications and/or Inappropriate clinical situations for Observational Care in patients with Atrial Fibrillation, when ANY ONE of the following is required: [ ]a) Prediction of prolongation of LOS based on ANY ONE of the following may be considered as a contraindication for observational care 2, 3, 4, 5, 6, 7, 8, 9, 10, 11 [ ]i) Age > 65 yrs. [ ]ii) Patient arriving by ambulance [ ]iii) Patient with high acuity [ ]iv) Patient requiring vital sign monitoring [ ]v) Patient on IV medication [ ]b) Systolic blood pressures 180mmHg 3,12 [ ]c) Patient with altered mental status including delirium and other alteration of consciousness3 [ ]d) Patient whose discharge disposition will be to a [facility] home or rehabilitation home should not be managed in Emergency Department Observation Unit. CMS rule requires 3 days hospital stay before such placement.3,13 [ ]e) Patient with failure to thrive due to broad array of etiologies 3,16,17 [ ]f) Inability to ambulate 3,14 Extended stay beyond goal length of stay may be needed for (1)(25)(26): [ ]a) Unstable comorbidities [ ]b) Persistently uncontrolled atrial fibrillation or other arrhythmias [ ]c) Acute thromboembolic event (e.g., stroke, limb ischemia) [ ]d) Need for inpatient attainment of full anticoagulation The original [employer] content created by [employer] has been revised. The portions of the content which have been revised are identified through the use of italic text or in bold, and [email or web address] has neither reviewed nor approved the modified material. All other unmodified content is copyright [employer]. Please see references footnoted in the original [employer] edition 2016 Admission Criteria Met: Yes
[2016-09-08] MEDS: ROCEPHIN/NS 1 GM/50 ML 1 GM/50 ML BAG IV SCH (10:14)
[2016-09-08] MEDS: LOVENOX SUB-Q SCH (10:14)
--- NOTE | 2016-09-08 10:24 | Progress Note ---
Assessment and Plan Assessment and plan: 1. Chest pain. Cardiology consultation pending. Consider stress thallium per cardiology recommendations. 2. Paroxysmal atrial fibrillation with RVR. Continue telemetry monitoring and aspirin. CHADS 2 score is 1. Etiology likely secondary to infectious process/ RLL pna. Follow-up echocardiogram. Patient currently normal sinus rhythm. 3. Obesity. Patient counseled regarding diet and increase physical activity. 4. Coarctation of aorta. CT of the chest negative. 5. Right lower lobe pneumonia. Continue pneumonia protocol, IV antibiotics, supplemental oxygen and supportive care. Follow-up blood cultures. 6. Pleurisy. Continue Toradol and pain control. 7. DVT prophylaxis. Lovenox. History Interval history: 25 YO Female with Paroxysmal Atrial Fib, Obesity, Aortic Coartcation S/P repair 25 years ago presents to ED for evaluation of chest pain. Patient was diagnosed with paroxysmal atrial fibrillation with RVR and right lower lobe pneumonia. Patient complains of right-sided pleurisy which is improved. Patient also complains of right-sided neck pain. Hospitalist Physical - Constitutional Vitals: Temp Pulse Resp BP Pulse Ox 99.4 F 72 18 129/70 97 09/08/16 04:15 09/08/16 04:15 09/08/16 04:15 09/08/16 04:15 09/08/16 04:15 General appearance: Present: no acute distress, well-nourished, obese - EENT Eyes: Present: PERRL, EOM intact ENT: hearing intact, clear oral mucosa, dentition normal - Neck Neck: Present: supple, normal ROM - Respiratory Respiratory effort: normal Respiratory: bilateral: CTA - Cardiovascular Rhythm: regular Heart Sounds: Present: S1 & S2. Absent: gallop, rub - Extremities Extremities: no ischemia, No edema, Full ROM - Abdominal General gastrointestinal: soft, non-tender, non-distended, normal bowel sounds - Integumentary Integumentary: Present: clear, warm, dry - Neurologic Neurologic: CNII-XII intact, moves all extremities Results - Labs CBC & Chem 7: 09/08/16 04:37 09/08/16 04:37 Labs: Laboratory Last Values WBC 10.2 K/mm3 (4.5-11.0) 09/08/16 04:37 RBC 4.17 M/mm3 (3.65-5.03) 09/08/16 04:37 Hgb 12.8 gm/dl (10.1-14.3) 09/08/16 04:37 Hct 37.7 % (30.3-42.9) 09/08/16 04:37 MCV 90 fl (79-97) 09/08/16 04:37 MCH 31 pg (28-32) 09/08/16 04:37 MCHC 34 % (30-34) 09/08/16 04:37 RDW 12.1 % (13.2-15.2) L 09/08/16 04:37 Plt Count 263 K/mm3 (140-440) 09/08/16 04:37 Lymph % (Auto) 15.9 % (13.4-35.0) 09/08/16 04:37 [place] % (Auto) 6.6 % (0.0-7.3) 09/08/16 04:37 Eos % (Auto) 0.4 % (0.0-4.3) 09/08/16 04:37 Baso % (Auto) 0.2 % (0.0-1.8) 09/08/16 04:37 Lymph # 1.6 K/mm3 (1.2-5.4) 09/08/16 04:37 [place] # 0.7 K/mm3 (0.0-0.8) 09/08/16 04:37 Eos # 0.0 K/mm3 (0.0-0.4) 09/08/16 04:37 Baso # 0.0 K/mm3 (0.0-0.1) 09/08/16 04:37 Seg Neutrophils % 76.9 % (40.0-70.0) H 09/08/16 04:37 Seg Neutrophils # 7.8 K/mm3 (1.8-7.7) H 09/08/16 04:37 PT 14.1 Sec. (12.2-14.9) 09/05/16 11:49 INR 1.10 (0.87-1.13) 09/05/16 11:49 Sodium 138 mmol/L (137-145) 09/08/16 04:37 Potassium 4.2 mmol/L (3.6-5.0) 09/08/16 04:37 Chloride 102.8 mmol/L (98-107) 09/08/16 04:37 Carbon Dioxide 22 mmol/L (22-30) 09/08/16 04:37 Anion Gap 17 mmol/L 09/08/16 04:37 BUN 7 mg/dL (7-17) 09/08/16 04:37 Creatinine 0.7 mg/dL (0.7-1.2) 09/08/16 04:37 Estimated GFR > 60 ml/min 09/08/16 04:37 BUN/Creatinine Ratio 10.00 % 09/08/16 04:37 Glucose 99 mg/dL (65-100) 09/08/16 04:37 Calcium 8.5 mg/dL (8.4-10.2) 09/08/16 04:37 Magnesium 2.0 mg/dL (1.7-2.3) 09/05/16 17:04 Troponin T < 0.010 ng/mL (0.00-0.029) 09/05/16 17:04 Triglycerides 60 mg/dL (2-149) 09/07/16 04:21 Cholesterol 130 mg/dL (50-199) 09/07/16 04:21 LDL Cholesterol Direct 70 mg/dL (50-130) 09/07/16 04:21 HDL Cholesterol 48 mg/dL (40-59) 09/07/16 04:21 Cholesterol/HDL Ratio 2.70 % 09/07/16 04:21 TSH 0.387 mlU/mL (0.270-4.200) 09/05/16 11:35 HCG, Quant < 2 mIU/mL (0-4) 09/05/16 11:35 Urine Color Yellow (Yellow) 09/05/16 11:30 Urine Turbidity Clear (Clear) 09/05/16 11:30 Urine pH 5.0 (5.0-7.0) 09/05/16 11:30 Ur Specific [place] 1.018 (1.003-1.030) 09/05/16 11:30 Urine Protein 30 mg/dl mg/dL (Negative) 09/05/16 11:30 Urine Glucose (UA) Neg mg/dL (Negative) 09/05/16 11:30 Urine Ketones 20 mg/dL (Negative) 09/05/16 11:30 Urine Blood Sm (Negative) 09/05/16 11:30 Urine Nitrite Neg (Negative) 09/05/16 11:30 Urine Bilirubin Neg (Negative) 09/05/16 11:30 Urine Urobilinogen 4.0 mg/dL (<2.0) 09/05/16 11:30 Ur Leukocyte Esterase Neg (Negative) 09/05/16 11:30 Urine WBC (Auto) 1.0 /HPF (0.0-6.0) 09/05/16 11:30 Urine RBC (Auto) 3.0 /HPF (0.0-6.0) 09/05/16 11:30 U Epithel Cells (Auto) 1.0 /HPF (0-13.0) 09/05/16 11:30 Urine Bacteria (Auto) 1+ /HPF (Negative) 09/05/16 11:30 Urine Mucus Few /HPF 09/05/16 11:30 Urine HCG, Qual Negative (Negative) 09/05/16 11:30
--- NOTE | 2016-09-08 10:26 | Progress Note ---
Assessment and Plan Assessment: Afib with RVR --> SR; new onset v. paroxysmal; TSH WNL; likely precipitated by PNA. PNA / pleurisy Remote h/o surgery for coarctation of aorta Obesity Plan: Currently stable cardiac status. Cont current management. Await echo. Cont tele. Pt with CHADS score of 1. Pt is at low risk for thromboembolic event and remains in SR. Thus, long-term anticoagulation in regards to atrial fibrillation is not recommended at this time. The patient has been seen in conjunction with Dr. Cleary who agrees with the assessment and plan of care. Subjective Date of service: 09/08/16 Principal diagnosis: paroxysmal atrial fibrillation; PNA Interval history: Pt resting in bed, still c/o right sided chest pain with deep inspiration. Remains in SR on tele, RBBB, BPs WNL. States she is ready to go home. Objective Last Vital Signs Temp 99.4 F 09/08/16 04:15 Pulse 72 09/08/16 04:15 Resp 18 09/08/16 04:15 BP 129/70 09/08/16 04:15 Pulse Ox 97 09/08/16 04:15 - Physical Examination General: Appears Well, No Apparent Distress HEENT: Positive: PERRL, EOMI Neck: Positive: neck supple, trachea midline Cardiac: Positive: Reg Rate and Rhythm, S1/S2 Lungs: Positive: Decreased Breath Sounds (RLL) Neuro: Positive: Grossly Intact, Cranial Nerve 2-12 Intact Abdomen: Positive: Unremarkable, Soft, Active Bowel Sounds. Negative: Tender Skin: Positive: Clear. Negative: Rash, Wound Musculoskeletal: No Fluid Collection, No Pain, Normal Range of Motion Extremities: Present: upper extr. pulses, lower extr. pulses - Labs and Meds CBC 09/08/16 Range/Units 04:37 WBC 10.2 (4.5-11.0) K/mm3 RBC 4.17 (3.65-5.03) M/mm3 Hgb 12.8 (10.1-14.3) gm/dl Hct 37.7 (30.3-42.9) % Plt Count 263 (140-440) K/mm3 Lymph # 1.6 (1.2-5.4) K/mm3 [place] # 0.7 (0.0-0.8) K/mm3 Eos # 0.0 (0.0-0.4) K/mm3 Baso # 0.0 (0.0-0.1) K/mm3 Comprehensive Metabolic Panel 09/08/16 Range/Units 04:37 Sodium 138 (137-145) mmol/L Potassium 4.2 (3.6-5.0) mmol/L Chloride 102.8 (98-107) mmol/L Carbon Dioxide 22 (22-30) mmol/L BUN 7 (7-17) mg/dL Creatinine 0.7 (0.7-1.2) mg/dL Glucose 99 (65-100) mg/dL Calcium 8.5 (8.4-10.2) mg/dL - Imaging and Cardiology EKG: report reviewed Echo: pending - Telemetry EKG Rhythm: Sinus Rhythm
--- NOTE | 2016-09-08 11:19 | XRay Report ---
CHEST 2 VIEWS INDICATION: Pneumonia. COMPARISON: 09/05/2016 FINDINGS: Frontal and lateral chest radiographs demonstrate stable cardiomediastinal silhouette. Mild increased right basilar pleural fluid/atelectasis/consolidation. No CHF. Stable sternotomy wires and osseous structures. CONCLUSION: Increased right basilar opacity, as described. Thank you for the opportunity to participate in this patient's care.
[2016-09-08] MEDS: ULTRAM PO PRN (20:01)
[2016-09-08] MEDS: COREG PO SCH (23:56)
[2016-09-09 05:36] LABS: Basophils % (Auto) 0.6 % (0.0-1.8); Eosinophils % (Auto) 1.9 % (0.0-4.3); Hematocrit 38.7 % (30.3-42.9); Hemoglobin 12.9 gm/dl (10.1-14.3); Mean Corpuscular HGB Conc 33 % (30-34); Mean Corpuscular Hemoglobin 30 pg (28-32); Mean Corpuscular Volume 90 fl (79-97); Platelet Count 276 K/mm3 (140-440); Red Blood Count 4.29 M/mm3 (3.65-5.03); Red Cell Distribution Width 12.3 % (13.2-15.2); White Blood Count 5.9 K/mm3 (4.5-11.0)
[2016-09-09 05:51] LABS: Anion Gap 17 mmol/L; BUN/Creatinine Ratio 11.42; Blood Urea Nitrogen 8 mg/dL (7-17); Calcium 8.7 mg/dL (8.4-10.2); Carbon Dioxide 23 mmol/L (22-30); Chloride 104.5 mmol/L (98-107); Glucose 84 mg/dL (65-100); Potassium 4.1 mmol/L (3.6-5.0); Sodium 140 mmol/L (137-145)
[2016-09-09] MEDS: LOVENOX SUB-Q SCH (10:15)
[2016-09-09] MEDS: COREG PO SCH ×2 (10:15→22:55)
[2016-09-09] MEDS: ROCEPHIN/NS 1 GM/50 ML 1 GM/50 ML BAG IV SCH (10:25)
--- NOTE | 2016-09-09 10:56 | Progress Note ---
Assessment and Plan Assessment and plan: 1. Chest pain. Resolved. 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 Cardiology started the patient on Coreg twice a day. 2. Paroxysmal atrial fibrillation with RVR. Continue telemetry monitoring and aspirin. CHADS 2 score is 1. Etiology likely secondary to infectious process/ RLL pna. Echocardiogram as above. Patient currently normal sinus rhythm. 3. Obesity. Patient counseled regarding diet and increase physical activity. 4. Coarctation of aorta. CT of the chest negative. 5. Right lower lobe pneumonia. Continue pneumonia protocol, IV antibiotics, supplemental oxygen and supportive care. Follow-up blood cultures. 6. Pleurisy. Continue Toradol and pain control. 7. DVT prophylaxis. Lovenox. History Interval history: 25 YO Female with Paroxysmal Atrial Fib, Obesity, Aortic Coartcation S/P repair 25 years ago presents to ED for evaluation of chest pain. Patient was diagnosed with paroxysmal atrial fibrillation with RVR and right lower lobe pneumonia. Patient complains of right-sided pleurisy which is improved. Hospitalist Physical - Constitutional Vitals: Temp Pulse Resp BP Pulse Ox 97.4 F L 74 18 110/53 96 09/09/16 08:43 09/09/16 09:30 09/09/16 08:43 09/09/16 08:43 09/09/16 08:43 General appearance: Present: no acute distress, well-nourished, obese - EENT Eyes: Present: PERRL, EOM intact ENT: hearing intact, clear oral mucosa, dentition normal - Neck Neck: Present: supple, normal ROM - Respiratory Respiratory effort: normal Respiratory: bilateral: CTA - Cardiovascular Rhythm: regular Heart Sounds: Present: S1 & S2. Absent: gallop, rub - Extremities Extremities: no ischemia, No edema, Full ROM - Abdominal General gastrointestinal: soft, non-tender, non-distended, normal bowel sounds - Integumentary Integumentary: Present: clear, warm, dry - Neurologic Neurologic: CNII-XII intact, moves all extremities Results - Labs CBC & Chem 7: 09/09/16 05:15 09/09/16 05:15 Labs: Laboratory Last Values WBC 5.9 K/mm3 (4.5-11.0) 09/09/16 05:15 RBC 4.29 M/mm3 (3.65-5.03) 09/09/16 05:15 Hgb 12.9 gm/dl (10.1-14.3) 09/09/16 05:15 Hct 38.7 % (30.3-42.9) 09/09/16 05:15 MCV 90 fl (79-97) 09/09/16 05:15 MCH 30 pg (28-32) 09/09/16 05:15 MCHC 33 % (30-34) 09/09/16 05:15 RDW 12.3 % (13.2-15.2) L 09/09/16 05:15 Plt Count 276 K/mm3 (140-440) 09/09/16 05:15 Lymph % (Auto) 43.6 % (13.4-35.0) H 09/09/16 05:15 [place] % (Auto) 7.8 % (0.0-7.3) H 09/09/16 05:15 Eos % (Auto) 1.9 % (0.0-4.3) 09/09/16 05:15 Baso % (Auto) 0.6 % (0.0-1.8) 09/09/16 05:15 Lymph # 2.6 K/mm3 (1.2-5.4) 09/09/16 05:15 [place] # 0.5 K/mm3 (0.0-0.8) 09/09/16 05:15 Eos # 0.1 K/mm3 (0.0-0.4) 09/09/16 05:15 Baso # 0.0 K/mm3 (0.0-0.1) 09/09/16 05:15 Seg Neutrophils % 46.1 % (40.0-70.0) 09/09/16 05:15 Seg Neutrophils # 2.7 K/mm3 (1.8-7.7) 09/09/16 05:15 PT 14.1 Sec. (12.2-14.9) 09/05/16 11:49 INR 1.10 (0.87-1.13) 09/05/16 11:49 Sodium 140 mmol/L (137-145) 09/09/16 05:15 Potassium 4.1 mmol/L (3.6-5.0) 09/09/16 05:15 Chloride 104.5 mmol/L (98-107) 09/09/16 05:15 Carbon Dioxide 23 mmol/L (22-30) 09/09/16 05:15 Anion Gap 17 mmol/L 09/09/16 05:15 BUN 8 mg/dL (7-17) 09/09/16 05:15 Creatinine 0.7 mg/dL (0.7-1.2) 09/09/16 05:15 Estimated GFR > 60 ml/min 09/09/16 05:15 BUN/Creatinine Ratio 11.42 % 09/09/16 05:15 Glucose 84 mg/dL (65-100) 09/09/16 05:15 Calcium 8.7 mg/dL (8.4-10.2) 09/09/16 05:15 Magnesium 2.0 mg/dL (1.7-2.3) 09/05/16 17:04 Troponin T < 0.010 ng/mL (0.00-0.029) 09/05/16 17:04 Triglycerides 60 mg/dL (2-149) 09/07/16 04:21 Cholesterol 130 mg/dL (50-199) 09/07/16 04:21 LDL Cholesterol Direct 70 mg/dL (50-130) 09/07/16 04:21 HDL Cholesterol 48 mg/dL (40-59) 09/07/16 04:21 Cholesterol/HDL Ratio 2.70 % 09/07/16 04:21 TSH 0.387 mlU/mL (0.270-4.200) 09/05/16 11:35 HCG, Quant < 2 mIU/mL (0-4) 09/05/16 11:35 Urine Color Yellow (Yellow) 09/05/16 11:30 Urine Turbidity Clear (Clear) 09/05/16 11:30 Urine pH 5.0 (5.0-7.0) 09/05/16 11:30 Ur Specific [place] 1.018 (1.003-1.030) 09/05/16 11:30 Urine Protein 30 mg/dl mg/dL (Negative) 09/05/16 11:30 Urine Glucose (UA) Neg mg/dL (Negative) 09/05/16 11:30 Urine Ketones 20 mg/dL (Negative) 09/05/16 11:30 Urine Blood Sm (Negative) 09/05/16 11:30 Urine Nitrite Neg (Negative) 09/05/16 11:30 Urine Bilirubin Neg (Negative) 09/05/16 11:30 Urine Urobilinogen 4.0 mg/dL (<2.0) 09/05/16 11:30 Ur Leukocyte Esterase Neg (Negative) 09/05/16 11:30 Urine WBC (Auto) 1.0 /HPF (0.0-6.0) 09/05/16 11:30 Urine RBC (Auto) 3.0 /HPF (0.0-6.0) 09/05/16 11:30 U Epithel Cells (Auto) 1.0 /HPF (0-13.0) 09/05/16 11:30 Urine Bacteria (Auto) 1+ /HPF (Negative) 09/05/16 11:30 Urine Mucus Few /HPF 09/05/16 11:30 Urine HCG, Qual Negative (Negative) 09/05/16 11:30
--- NOTE | 2016-09-09 13:02 | Progress Note ---
Assessment and Plan Assessment: Afib with RVR --> SR; new onset v. paroxysmal; TSH WNL; likely precipitated by PNA. PNA / pleurisy Remote h/o surgery for coarctation of aorta Obesity Plan: Echo reviewed - EF 40 - 45%, small VSD, RV wall thickness mildly increased, RV systolic function moderately reduced, trace TR. Currently stable cardiac status. Cont current management. Cont tele. Pt with CHADS score of 1. Pt is at low risk for thromboembolic event and remains in SR. Thus, long-term anticoagulation in regards to atrial fibrillation is not recommended at this time. Pt may discharge home from cardiology standpoint. Will see PRN. Recommend follow up in our [place] office with Dr. Cleary within 1-2 weeks of hospital discharge. The patient has been seen in conjunction with Dr. Cleary who agrees with the assessment and plan of care. Subjective Date of service: 09/09/16 Principal diagnosis: paroxysmal atrial fibrillation; PNA Interval history: Pt resting in bed, no complaints. Remains in SR on tele, RBBB, BPs WNL. States she is ready to go home. Objective Last Vital Signs Temp 97.4 F L 09/09/16 08:43 Pulse 74 09/09/16 09:30 Resp 18 09/09/16 08:43 BP 110/53 09/09/16 08:43 Pulse Ox 96 09/09/16 08:43 - Physical Examination General: Appears Well, No Apparent Distress HEENT: Positive: PERRL, EOMI Neck: Positive: neck supple, trachea midline Cardiac: Positive: Reg Rate and Rhythm, S1/S2 Lungs: Positive: Normal Exam, clear to auscultation, Normal Breath Sounds Neuro: Positive: Grossly Intact, Cranial Nerve 2-12 Intact Abdomen: Positive: Unremarkable, Soft, Active Bowel Sounds. Negative: Tender Skin: Positive: Clear. Negative: Rash, Wound Musculoskeletal: No Fluid Collection, No Pain, Normal Range of Motion Extremities: Present: upper extr. pulses, lower extr. pulses - Labs and Meds CBC 09/09/16 Range/Units 05:15 WBC 5.9 (4.5-11.0) K/mm3 RBC 4.29 (3.65-5.03) M/mm3 Hgb 12.9 (10.1-14.3) gm/dl Hct 38.7 (30.3-42.9) % Plt Count 276 (140-440) K/mm3 Lymph # 2.6 (1.2-5.4) K/mm3 [place] # 0.5 (0.0-0.8) K/mm3 Eos # 0.1 (0.0-0.4) K/mm3 Baso # 0.0 (0.0-0.1) K/mm3 Comprehensive Metabolic Panel 09/09/16 Range/Units 05:15 Sodium 140 (137-145) mmol/L Potassium 4.1 (3.6-5.0) mmol/L Chloride 104.5 (98-107) mmol/L Carbon Dioxide 23 (22-30) mmol/L BUN 8 (7-17) mg/dL Creatinine 0.7 (0.7-1.2) mg/dL Glucose 84 (65-100) mg/dL Calcium 8.7 (8.4-10.2) mg/dL - Imaging and Cardiology EKG: report reviewed Echo: pending
[2016-09-10 05:57] LABS: Basophils % (Auto) 0.6 % (0.0-1.8); Eosinophils % (Auto) 2.1 % (0.0-4.3); Hematocrit 40.1 % (30.3-42.9); Hemoglobin 13.5 gm/dl (10.1-14.3); Mean Corpuscular HGB Conc 34 % (30-34); Mean Corpuscular Hemoglobin 31 pg (28-32); Mean Corpuscular Volume 91 fl (79-97); Platelet Count 292 K/mm3 (140-440); Red Blood Count 4.41 M/mm3 (3.65-5.03); Red Cell Distribution Width 12.2 % (13.2-15.2); White Blood Count 6.1 K/mm3 (4.5-11.0)
[2016-09-10 06:13] LABS: Anion Gap 17 mmol/L; BUN/Creatinine Ratio 11.25; Blood Urea Nitrogen 9 mg/dL (7-17); Calcium 8.9 mg/dL (8.4-10.2); Carbon Dioxide 24 mmol/L (22-30); Chloride 102.1 mmol/L (98-107); Glucose 86 mg/dL (65-100); Potassium 4.4 mmol/L (3.6-5.0); Sodium 139 mmol/L (137-145)
--- NOTE | 2016-09-10 08:37 | Discharge Summary ---
Providers - Providers Date of Admission: 09/05/16 16:45 Date of discharge: 09/10/16 Attending physician: ROSE GARCÍA Primary care physician: DIETETIC TECHNICIAN Hospitalization Reason for admission: pna, pleurisy, afib Condition: Stable Hospital course: 25 YO Female with Paroxysmal Atrial Fib, Obesity, Aortic Coartcation S/P repair 25 years ago presents to ED for evaluation of chest pain. Patient was diagnosed with paroxysmal atrial fibrillation with RVR and right lower lobe pneumonia. Patient was placed on the pneumonia pathway and treated with IV antibiotics. Patient had slow but significant improvement in the pneumonia. Patient also was noted to have pleurisy treated with Toradol. CT scan of the chest was negative other than the pneumonia. Patient was also noted to have the A. fib as noted above that was felt to be likely precipitated by the pneumonia. TSH was found to be within normal limits. Echocardiogram was obtained which revealed EF of 40-45% with small VSD and right ventricular wall thickness mildly increased. Right ventricular systolic function moderately reduced, trace TR. Patient was monitored on telemetry and maintained a normal sinus rhythm after admission. Patient had a Chads score of 1. Therefore, cardiology felt she was low risk for thromboembolic event. No anticoagulation was recommended at this time. Patient is to follow-up with cardiology in 1-2 weeks. Patient will be discharged with antibiotics. Dedicated discharge time 36 minutes. Disposition: DISCHARGED TO HOME OR SELFCARE Time spent for discharge: 36 - Discharge Diagnoses (1) Pleurisy Status: Acute (2) Atrial fibrillation with RVR Status: Acute (3) Lower lobe pneumonia Status: Acute Qualifiers: Pneumonia type: P Aspiration pneumonia type: A Laterality: L (4) Paroxysmal atrial fibrillation with rapid ventricular response Status: Acute (5) Coarctation of aorta Status: Chronic Core Measure Documentation - Palliative Care Palliative Care/ Comfort Measures: Not Applicable - Core Measures Any of the following diagnoses?: none Exam - Constitutional Vitals: Temp Pulse Resp BP Pulse Ox 97.6 F 65 18 106/56 96 09/10/16 04:15 09/10/16 08:26 09/10/16 04:15 09/10/16 04:15 09/10/16 04:15 General appearance: Present: no acute distress, well-nourished - EENT Eyes: Present: PERRL ENT: hearing intact, clear oral mucosa - Neck Neck: Present: supple, normal ROM - Respiratory Respiratory effort: normal Respiratory: bilateral: CTA - Cardiovascular Heart Sounds: Present: S1 & S2. Absent: rub, click - Extremities Extremities: pulses symmetrical, No edema Peripheral Pulses: within normal limits - Abdominal General gastrointestinal: Present: soft, non-tender, non-distended, normal bowel sounds Female genitourinary: Present: normal - Integumentary Integumentary: Present: clear, warm, dry - Musculoskeletal Musculoskeletal: gait normal, strength equal bilaterally - Psychiatric Psychiatric: appropriate mood/affect, intact judgment & insight - Neurologic Neurologic: CNII-XII intact, moves all extremities Plan Activity: no restrictions Weight Bearing Status: Full Weight Bearing Diet: regular Follow up with: JEWELS MIN MD [Staff Physician] - 3-5 Days PRIMARY CARE, [Primary Care Provider] - 3-5 Days DEREJE WATERS MD [Staff Physician] - 3-5 Days Prescriptions: Azithromycin [Zithromax Z-LEONELA] 250 mg PO QDAY #4 tablet Azithromycin [Zithromax TAB] 500 mg PO QDAY #7 tablet Carvedilol [Coreg] 3.125 mg PO BID #60 tablet Cefuroxime Axetil [Ceftin] 500 mg PO Q12H #14 tablet Ketorolac [Toradol] 10 mg PO Q6H PRN #20 tablet PRN Reason: Pain Metoclopramide [Reglan] 10 mg PO QID PRN #30 tablet PRN Reason: Nausea traMADol [Ultram 50 MG tab] 50 mg PO Q6H PRN #15 tablet PRN Reason: Pain, Moderate (4-6)
[2016-09-10 09:46] VITALS: BP 111/65
[2016-09-10] MEDS: LOVENOX SUB-Q SCH (09:59)
[2016-09-10] MEDS: COREG PO SCH (09:59)
[2016-09-10] MEDS: ROCEPHIN/NS 1 GM/50 ML 1 GM/50 ML BAG IV SCH (09:59)
== END 2016-09-10 12:48 | disposition home or self-care (01) | DRG 194 ==
LOC: ED 11:00 → 4A 16:45
PROVIDERS: ADMIT Internal Medicine; ATTEND Hospitalist
DX: J18.9 Pneumonia, unspecified organism (principal); Q25.1 Coarctation of aorta; E66.9 Obesity, unspecified; I48.0 Paroxysmal atrial fibrillation; R09.1 Pleurisy; Z68.37 Body mass index [BMI] 37.0-37.9, adult; F15.90 Other stimulant use, unspecified, uncomplicated; Z98.890 Other specified postprocedural states; Z83.3 Family history of diabetes mellitus; Z82.49 Family history of ischemic heart disease and other diseases of the circulatory system
CPT/HCPCS: 36415; 71010; 71020; 71275; 80048; 80061; 81001; 81025; 83735; 84443; 84484; 84702; 85025; 85610; 87040; 93005; 93010; 93306; 96361; 96365; 96375; J0696; J1170; J1650; J1885; J2270; J7030; Q9967

== ENCOUNTER 2017-02-12 10:35 | Emergency (ER) | payer OTHER ==
[2017-02-12 10:52] VITALS: BP 131/75
[2017-02-12] MEDS ORDERED: TORADOL IM ONE (12:43)
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
== END 2017-02-12 14:40 | disposition home or self-care (01) ==
LOC: ED 10:35
DX: S29.012A Strain of muscle and tendon of back wall of thorax, initial encounter (principal); V43.52XA Car driver injured in collision with other type car in traffic accident, initial encounter; Y92.488 Other paved roadways as the place of occurrence of the external cause; Y93.89 Activity, other specified; Y99.8 Other external cause status
CPT/HCPCS: 72072; 81025; 96372; 99283; J1885